=== PATIENT | female | born 2000 | race Caucasian/White ===

== ENCOUNTER 2022-12-04 12:02 | Outpatient (CLI) | payer OTHER ==
[2022-12-04 12:51] LABS: Appearance,Urine Clear (Clear); Bilirubin,Urine Negative (Negative); Blood,Urine Negative (Negative); Color,Urine Light Yellow; Glucose,Urine (UA) Negative (Negative); Ketones,Urine Negative (Negative); Leukocyte Esterase,Urine Negative (Negative); Nitrite,Urine Negative (Negative); PH, Urine 7.5 (5.0-8.0); Protein,Urine Negative (Negative); Specific Gravity,Urine 1.005 (1.001-1.035); Urobilinogen,Urine <2.0 mg/dL (<2.0)
[2022-12-04 15:06] VITALS: BP 120/74; PULSE 96; RESP 16; TEMP 98.1
--- NOTE | 2022-12-04 16:53 | P.MSEPDOC ---
Presenting Problems - Arrival Data Date of Arrival on Unit: 12/04/22 Time of Arrival on Unit: 12:11 Mode of Transport: Wheelchair - Complaint OB-Reason for Admission/Chief Complaint: Pain Medical History - Information : 2 Para: 0 Term: 0 : 0 Abortions: Spontaneous or Elective: 1 Number of Living Children: 0 - Gestational Age Gestational Age by SIERRA (wks/days): 20 Weeks and 2 Days Review of Systems - Review of Systems Constitutional: No problems Breast: No problems ENT: No problems Cardiovascular: No problems Respiratory: No problems Gastrointestinal: No problems Genitourinary: No problems Musculoskeletal: No problems Neurological: No problems Skin: No problems Vital Signs - Temperature Temperature: 98.1 F Temperature Source: Temporal Artery Scan - Pulse Right Brachial Pulse Rate: 96 Pulse Assessment Method: Automatic Cuff - Respirations Respiratory Rate: 16 Oxygen Delivery Method: Room Air - Blood Pressure Right Arm Blood Pressure: 120/74 Blood Pressure Mean: 89 Blood Pressure Source: Automatic Cuff Medical Screen Scoring - Cervical Exam Dilation (cm): 0 Effacement (%): 50 Station: -3 Membranes: Intact - Assessment - Baby A Baseline FHR: 145 Physician Notification - Physician Notified Physician Notified Date: 12/04/22 Physician Notified Time: 13:02 Physician: Roger Mcnamara New Order Received: Yes - Notification Comment Comment: d/c home Maternal Triage Index - Maternal Triage Index Presenting for scheduled procedure w/no complaint: No - Stat/Priority 1 Stat Priority 1: No - Urgent/Priority 2 Urgent Priority 2: Yes Provider Notified: Roger Mcnamara Provider Notified Time: 12:30 Criteria Met for Priority 2: 20wk r/o contractions - Prompt/Priority 3 Prompt Priority 3: No - Non-Urgent/Priority 4 Non-Urgent Priority 4: No Disposition - Disposition OB Disposition: Discharge to home Discharge Date: 12/04/22 Discharge Time: 13:07 I agree with the RN Medical Screening Exam: Yes Case reviewed; plan agreed upon as documented in EMR&OBIX.: Yes Diagnosis: RELATED CONDITIONS, UNSPECIFIED, SECOND TRIMESTER
== END 2022-12-04 13:07 | disposition home or self-care (01) ==
LOC: FBPOP 12:02
PROVIDERS: ATTEND Obstetrics & Gynecology
DX: O26.892 Other specified pregnancy related conditions, second trimester (principal); Z3A.20 20 weeks gestation of pregnancy; R10.32 Left lower quadrant pain; Z91.013 Allergy to seafood; F17.200 Nicotine dependence, unspecified, uncomplicated
CPT/HCPCS: 81003; G0463; 99213

== ENCOUNTER 2023-01-15 12:35 | Outpatient (CLI) | payer OTHER ==
[2023-01-15 13:14] VITALS: BP 108/66; PULSE 91; RESP 16; TEMP 98.8
[2023-01-15 13:28] LABS: Appearance,Urine Clear (Clear); Bilirubin,Urine Negative (Negative); Blood,Urine Negative (Negative); Color,Urine Light Yellow; Glucose,Urine (UA) Negative (Negative); Ketones,Urine Negative (Negative); Leukocyte Esterase,Urine Negative (Negative); Nitrite,Urine Negative (Negative); Protein,Urine Negative (Negative); Specific Gravity,Urine 1.005 (1.001-1.035); Urobilinogen,Urine <2.0 mg/dL (<2.0)
--- NOTE | 2023-01-15 19:19 | P.MSEPDOC ---
Presenting Problems - Arrival Data Date of Arrival on Unit: 01/15/23 Time of Arrival on Unit: 12:35 Mode of Transport: Wheelchair - Complaint OB-Reason for Admission/Chief Complaint: Possible Onset of Labor Comment: contractions x2 days worsening Medical History - Information : 2 Para: 0 Term: 0 : 0 Abortions: Spontaneous or Elective: 0 Number of Living Children: 0 - Gestational Age Gestational Age by SIERRA (wks/days): 26 Weeks and 2 Days Review of Systems - Review of Systems Constitutional: No problems Breast: No problems ENT: No problems Cardiovascular: No problems Respiratory: No problems Gastrointestinal: No problems Genitourinary: No problems Musculoskeletal: No problems Neurological: No problems Skin: No problems Vital Signs - Temperature Temperature: 98.8 F Temperature Source: Temporal Artery Scan - Pulse Right Sitting Pulse Rate: 91 Pulse Assessment Method: Automatic Cuff - Respirations Respiratory Rate: 16 Oxygen Delivery Method: Room Air O2 Sat by Pulse Oximetry: 98 - Blood Pressure Right Arm Sitting Blood Pressure: 108/66 Blood Pressure Mean: 80 Blood Pressure Source: Automatic Cuff Medical Screen Scoring - Cervical Exam Dilation (cm): 0 Effacement (%): 0 Station: -3 Membranes: Intact - Uterine Contractions Frequency From (mins): 1 Frequency To (mins): 3 Duration From (seconds): 30 Duration To (seconds): 80 Intensity: Mild Resting: Soft to palpation - Assessment - Baby A Baseline FHR: 135 Heart Rate - NICHD Category: Category I (Normal) Physician Notification - Physician Notified Physician Notified Date: 01/15/23 Physician Notified Time: 13:45 Physician: Roger Mcanmara New Order Received: Yes (discharge with instruction) - Notification Comment Comment: ua negative, cervix closed, instructed to get preg support belt Maternal Triage Index - Stat/Priority 1 Stat Priority 1: No - Urgent/Priority 2 Urgent Priority 2: Yes Provider Notified: Roger Mcnamara Provider Notified Time: 13:13 Criteria Met for Priority 2: 26.2 weeks, contractions Disposition - Disposition OB Disposition: Triage, Discharge to home, Written follow up instructions reviewed Discharge Date: 01/15/23 Discharge Time: 13:50 I agree with the RN Medical Screening Exam: Yes Case reviewed; plan agreed upon as documented in EMR&OBIX.: Yes Diagnosis: RELATED CONDITIONS, UNSPECIFIED, SECOND TRIMESTER
== END 2023-01-15 13:50 | disposition home or self-care (01) ==
LOC: FBPOP 12:35
PROVIDERS: ATTEND Obstetrics & Gynecology
DX: O26.92 Pregnancy related conditions, unspecified, second trimester (principal); O99.332 Smoking (tobacco) complicating pregnancy, second trimester; F17.200 Nicotine dependence, unspecified, uncomplicated; Z3A.26 26 weeks gestation of pregnancy; Z91.013 Allergy to seafood
CPT/HCPCS: 81003; G0463; 99213

== ENCOUNTER 2023-02-10 11:12 | Outpatient (CLI) | payer OTHER ==
[2023-02-10 12:23] VITALS: BP 110/68; PULSE 109; RESP 18; TEMP 98.4
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
== END 2023-02-10 12:00 | disposition home or self-care (01) ==
LOC: FBPOP 11:12
PROVIDERS: ATTEND Obstetrics & Gynecology
DX: O26.893 Other specified pregnancy related conditions, third trimester (principal); O99.333 Smoking (tobacco) complicating pregnancy, third trimester; F17.200 Nicotine dependence, unspecified, uncomplicated; Z3A.30 30 weeks gestation of pregnancy; T14.90XA Injury, unspecified, initial encounter; V87.8XXA Person injured in other specified noncollision transport accidents involving motor vehicle (traffic), initial encounter; Z91.013 Allergy to seafood
CPT/HCPCS: 59025; G0463; 99213

== ENCOUNTER 2023-04-15 15:59 | Inpatient (IN) | payer OTHER ==
--- NOTE | 2023-04-15 06:40 | P.HPOB ---
History of Present Illness H&P Date: 04/15/23 Chief Complaint: Requested induction of labor This patient is a pleasant 22-year-old 2 para 0 female estimated date of confinement 04/21/2023 estimated gestational age 39 and one sevenths weeks who presents to labor and delivery for requested induction of labor. Patient's cervix is unfavorable and therefore request two-stage induction due to maternal discomfort. care has been uncomplicated with the exception of anxiety. Review of Systems Genitourinary: Reports Menstruation: Reports amenorrhea Past Medical History Past Medical History: No Reported History Additional Past Medical History / Comment(s): PCOS History of Any Multi-Drug Resistant Organisms: None Reported Past Surgical History: Cholecystectomy Past Anesthesia/Blood Transfusion Reactions: No Reported Reaction Past Psychological History: Anxiety Smoking Status: Never smoker Past Alcohol Use History: None Reported Past Drug Use History: None Reported Medications and Allergies Home Medications Medication Instructions Recorded Confirmed Type Bep-Levr-Vwycx Acid 1 cap PO DAILY 08/27/22 03/10/23 History [-U Capsule (formulary)] Lurasidone [Latuda] 20 mg PO DAILY 01/14/23 03/10/23 History Allergies Allergy/AdvReac Type Severity Reaction Status Date / Time shellfish derived [Shellfish] Allergy Rash/Hives Verified 03/10/23 18:18 Exam - OBG Physical Exam Abdomen: bowel sounds normal, no diffuse tenderness, no bruit present, no guarding noted, no hepatomegaly, no splenomegaly, no mass Vulva: both: normal Vagina: normal moisture, no discharge Cervix: no lesion (Cervix in the office was closed and thick), no discharge Uterus: enlarged (Fundal height is 38 cm) Results blood work shows she is A-, rubella immune, RPR is nonreactive, hepatitis B and C were negative, HIV is nonreactive, Glucola was 137 with a normal three-hour gtt., group B strep was negative, most recent ultrasound showed estimated weight to be 5 lbs. 11 oz. at 35 weeks. Patient received RhoGAM on January 22. Assessment and Plan Assessment: This is a pleasant 22-year-old 2 para 0 female 39 and one sevenths weeks gestation who presents to labor and delivery for requested induction of labor. Due to the unfavorable cervix, patient is going to receive Cervidil placement at this time. Plan is induction of labor and anticipate vaginal delivery. (1) 39 weeks gestation of Status: Acute Code(s): Z3A.39 - 39 WEEKS GESTATION OF SNOMED Code(s): 40607874 (2) Elective induction of labor planned Status: Acute Code(s): KME2655 - SNOMED Code(s): 606028961 (3) Rh negative state in antepartum period Status: Acute Code(s): O26.899 - OTH RELATED CONDITIONS, UNSPECIFIED TRIMESTER; Z67.91 - UNSPECIFIED BLOOD TYPE, RH NEGATIVE SNOMED Code(s): 940383009
[2023-04-15] MEDS ORDERED: NALBUPHINE 10 MG/ML (10 ML MDV) IV PRN (16:14)
[2023-04-15] MEDS ORDERED: DINOPROSTONE 10 MG INSERT.ER VAGINAL ONE (16:14)
[2023-04-16] MEDS ORDERED: OXYTOCIN 10 UNIT/ML 1 ML VIAL IM PRN ×2 (06:25→11:03)
[2023-04-16] MEDS ORDERED: LIDOCAINE 0.5% (PF) 5 MG/ML (50 ML SDV) SQ PRN (06:25)
[2023-04-16] MEDS ORDERED: miSOPROStoL 200 MCG TAB PO PRN ×2 (06:25→11:03)
[2023-04-16] MEDS ORDERED: CARBOPROST TROMETHAMINE 250 MCG/ML 1 ML AMP IM PRN ×2 (06:25→11:03)
[2023-04-16] MEDS ORDERED: TRANEXAMIC 1,000 MG/100ML-NACL 1,000 MG in EMPTY BAG 1 BAG IV PRN ×2 (06:25→11:03)
[2023-04-16] MEDS ORDERED: METHYLERGONOVINE 0.2 MG/ML 1 ML AMP IM PRN ×2 (06:25→11:03)
[2023-04-16] MEDS ORDERED: TERBUTALINE 1 MG/ML VIAL SQ PRN (06:25)
[2023-04-16] MEDS ORDERED: OXYTOCIN 30 UNITS/500 ML NS 30 UNIT in SALINE 1 500ML.BAG IV SCH ×2 (06:30→12:45)
[2023-04-16] MEDS ORDERED: LACTATED RINGERS 1,000 ML IV SCH (06:30)
--- NOTE | 2023-04-16 06:40 | P.PN ---
Progress Note - Text Progress Note Date: 04/16/23 Patient has Cervidil placed last evening. Cervix this morning is closed and thick. She's having occasional contractions. heart tones are category 1. I previously discussed options with the patient the office if the Cervidil is ineffective including coming back in trying another day, attempting induction with Pitocin, or delivery by section. After discussion with the patient and her partner requesting to try Pitocin this morning 's ineffective or has no significant change and we'll proceed with section today. I did discuss the surgery and risks with the patient. Plan is to attempt induction with Pitocin otherwise proceed with primary section s econdary to failed induction.
[2023-04-16 07:03] LABS: Basophils % (A) 0 %; Eosinophils # (A) 0.1 k/uL (0-0.7); Eosinophils % (A) 1 %; HGB 12.8 gm/dL (11.4-16.0); Lymphocytes # (A) 2.7 k/uL (1.0-4.8); Lymphocytes % (A) 35 %; MCH 31.7 pg (25.0-35.0); MCHC 33.8 g/dL (31.0-37.0); MCV 93.7 fL (80.0-100.0); Mean Platelet Volume 8.7; Monocytes # (A) 0.5 k/uL (0-1.0); Monocytes % (A) 6 %; Neutrophils # (A) 4.3 k/uL (1.3-7.7); Neutrophils % (A) 55 %; Platelet Count 275 k/uL (150-450); RBC 4.05 m/uL (3.80-5.40); RDW 13.6 % (11.5-15.5); WBC 7.8 k/uL (3.8-10.6)
[2023-04-16] MEDS ORDERED: CITRIC ACID-SODIUM CITRATE 15 ML CUP PO ONE (11:03)
[2023-04-16] MEDS ORDERED: NALBUPHINE 10 MG/ML (10 ML MDV) ONE (12:00)
[2023-04-16] MEDS ORDERED: KETOROLAC 15 MG/ML 1 ML VIAL ONE (12:00)
[2023-04-16] MEDS ORDERED: OXYTOCIN 30 UNITS/500 ML NS BAG IV ONE (12:00)
[2023-04-16] MEDS ORDERED: ONDANSETRON 4 MG/2 ML VIAL ONE (12:00)
[2023-04-16] MEDS ORDERED: ePHEDrine 50 MG/ML 1 ML VIAL ONE (12:00)
[2023-04-16] MEDS ORDERED: MORPHINE SULFATE (PF) 0.3 MG/0.3 ML SYR ONE (12:00)
[2023-04-16] MEDS ORDERED: ONDANSETRON 4 MG/2 ML VIAL IVP PRN (12:30)
[2023-04-16] MEDS ORDERED: NALOXONE 0.4 MG/ML 1 ML VIAL IV PRN (12:30)
[2023-04-16] MEDS ORDERED: KETOROLAC 15 MG/ML 1 ML VIAL IVP PRN (12:30)
[2023-04-16] MEDS ORDERED: diphenhydrAMINE 50 MG/ML 1 ML VIAL IVP PRN ×2 (12:30→12:43)
[2023-04-16] MEDS ORDERED: HYDROmorphone 0.5 MG/0.5 ML SYRINGE IVP PRN (12:30)
[2023-04-16] MEDS ORDERED: ZOLPIDEM 5 MG TAB PO PRN (12:43)
[2023-04-16] MEDS ORDERED: diphenhydrAMINE 25 MG CAP PO PRN (12:43)
[2023-04-16] MEDS ORDERED: METOCLOPRAMIDE 5 MG/ML 2 ML VIAL IVP PRN (12:43)
[2023-04-16] MEDS ORDERED: SIMETHICONE 80 MG CHEWABLE PO PRN (12:43)
[2023-04-16] MEDS ORDERED: LANOLIN CREAM 5 GM TUBE TOPICAL PRN (12:43)
--- NOTE | 2023-04-16 12:52 | P.OP ---
Date of Procedure: 04/16/23 Preoperative Diagnosis: #1: 39-2/7 week intrauterine . #2: Failed induction requests Postoperative Diagnosis: #1; same. #2: Brow presentation Procedure(s) Performed: Primary low transverse section Anesthesia: spinal Surgeon: Roger Mcnamara Water Pump Servicer #1: Stella Yañez Estimated Blood Loss (ml): 600 Pathology: none sent Condition: stable Disposition: floor Indications for Procedure: Please see dictated H&P for intimate details of this patient's admission. In brief summary is a pleasant 22-year-old 2 para 0 female 39-2/7 weeks gestation admitted to labor and delivery for two-stage induction of labor for requested delivery. Patient has a Cervidil placed and unfortunately she has no dilation or change in her cervix. I did offer the patient to go home her come back again to try the Cervidil again she elected to try Pitocin if unsuccessful wish to proceed with section for delivery. She made no change with Pitocin and therefore proceed with section at this time. Patient does understand the surgery and risks including risks of infection, bleeding, possible injury to bowel, bladder, vessels and/or other organs. All the patient's questions are answered and a written consent is obtained. Operative Findings: This is a vigorous viable female infant Apgars 8 and 9 delivery time is 1216 hrs. Patient normal appearing uterus, tubes, ovaries. was a brow presentation Description of Procedure: This patient is taken to the operating room where she is sat up and spinal anesthetic is administered without incident. A Schmitz catheter had already been placed to straight drain. With an adequate level of anesthesia she has abdominal prep and drape. The appropriate timeout was done. At this time scalpels and taken a Pfannenstiel skin incision is then made. A second scalpel is taken down the fascia the fascia scored with a knife. Fascial incision extended bilaterally using the Kaye scissors. Fascia is then dissected off the rectus muscles sharply. Rectus muscles are the peritoneum identified and entered sharply. Peritoneal incision extended superior and inferior without difficulty. Bladder blade is then placed. Bladder peritoneum was then sharply taken off the lower uterine segment. Scalpels and taken low transverse uterine incision is made. Using a hemostat I enter the uterine cavity bluntly and there is loss of small amount of clear fluid. Incision is extended bluntly. This point the 's head is attempted then guided through the incision but it is asynclitic and found to be in brow presentation. The infant's head is then repositioned and then easily delivered with fundal pressure. Mouth and nares are bulb suctioned. Is no evidence of a nuchal cord. With more fundal pressure delivery the rest this 's body. Is a vigorous viable female infant Apgars are 8 and 9 delivery time was 1216 hrs. After delivery of the the umbilical cord is doubly clamped and cut is handed off to the nurses in attendance. The placenta is then manually extracted intact. Uterus is then externalized and uterine incision demarcated with Cooper clamps. Uterine incision is then closed using 0 Vicryl running locked fashion 2 layers. Stasis is noted. The bladder peritoneum was then reapproximated using a 3-0 Vicryl. Excess fluid is removed from the abdomen and pelvis. The uterus, tubes, ovaries appear normal for term gestation. Uterus placed back into the abdomen. The parietal peritoneum was then identified and closed using 0 Vicryl running fashion. Rectus muscles reapproximated Vicryl interrupted fashion. Fascial incision is then closed using 0 PDS in a running fashion. Fascial incision is intact and hemostatic. Subcutaneous tissues and closed using a 3-0 Vicryl. Skin is and closed using saumya. All counts are correct 3. There are no complications. Infant and mother are taken to the birthing suite in satisfactory condition.
[2023-04-16] MEDS: ACETAMINOPHEN TAB 500 MG TAB PO SCH ×2 (14:57→22:18)
[2023-04-16] MEDS: LACTATED RINGERS 1,000 ML IV SCH ×2 (15:15→17:57)
[2023-04-16] MEDS: KETOROLAC 15 MG/ML 1 ML VIAL IVP SCH (17:54)
[2023-04-16] MEDS: IBUPROFEN 600 MG TAB PO SCH (19:42)
[2023-04-16] MEDS: SENNOSIDES-DOCUSATE SODIUM 1 EACH TAB PO SCH (21:46)
[2023-04-16] MEDS ORDERED: Rhogam IMMUNE GLOBULIN 1,500 UNIT/1 ML IM ONE (21:46)
[2023-04-17] MEDS: ACETAMINOPHEN TAB 500 MG TAB PO SCH ×4 (06:20→22:09)
[2023-04-17] MEDS: LACTATED RINGERS 1,000 ML IV SCH (06:21)
[2023-04-17] MEDS: IBUPROFEN 600 MG TAB PO SCH ×4 (06:21→18:48)
[2023-04-17 06:38] LABS: Basophils % (A) 0 %; Eosinophils # (A) 0.1 k/uL (0-0.7); Eosinophils % (A) 1 %; HCT 33.9 % (34.0-46.0); HGB 11.5 gm/dL (11.4-16.0); Lymphocytes # (A) 2.4 k/uL (1.0-4.8); Lymphocytes % (A) 29 %; MCH 32.2 pg (25.0-35.0); MCHC 34.1 g/dL (31.0-37.0); MCV 94.4 fL (80.0-100.0); Mean Platelet Volume 8.6; Monocytes # (A) 0.5 k/uL (0-1.0); Monocytes % (A) 6 %; Neutrophils # (A) 5.3 k/uL (1.3-7.7); Neutrophils % (A) 63 %; Platelet Count 206 k/uL (150-450); RBC 3.59 m/uL (3.80-5.40); RDW 13.8 % (11.5-15.5); WBC 8.4 k/uL (3.8-10.6)
--- NOTE | 2023-04-17 06:40 | P.PNOBGPC ---
Subjective - Subjective Patient reports: Reports appetite normal, Reports voiding normally, Reports pain well controlled, Reports ambulating normally : doing well Objective - Vital Signs Latest vital signs: Vital Signs Temp Pulse Resp BP Pulse Ox 04/17/23 04:00 68 16 110/69 04/17/23 00:00 98.1 F 89 16 110/69 04/16/23 21:00 16 04/16/23 20:00 98.8 F 96 16 112/73 97 04/16/23 19:00 16 04/16/23 17:00 18 04/16/23 15:54 16 04/16/23 15:51 98.0 F 98 16 121/68 99 04/16/23 15:30 16 04/16/23 14:45 98.0 F 109 H 16 122/70 100 04/16/23 14:15 97 16 124/66 100 04/16/23 13:45 99 16 124/78 99 04/16/23 13:30 91 16 123/66 98 04/16/23 13:15 81 16 121/66 04/16/23 13:00 74 16 122/60 04/16/23 12:45 96.4 F L 74 16 112/55 Intake and Output 04/16/23 04/16/23 04/17/23 14:59 22:59 06:59 Intake Total 600 Output Total 850 100 900 Balance -250 -100 -900 Intake: IV 600 Output: Urine 250 100 900 Straight 900 Output, Quantitative 600 Blood Loss Other: Voiding Method Indwelling Catheter Indwelling Catheter - Exam Lungs: bilateral: normal Chest: Normal S1, Normal S2 Extremities: Present: normal Abdomen: Present: normal appearance, soft. Absent: distention, tenderness Incision: Present: normal, dry, intact Uterus: Present: normal, firm Assessment and Plan Assessment: Postoperative day #1. Patient is resting without new complaints. Vital signs are stable and she is afebrile. Uterus is firm nontender she's having normal lochia. She did need to have a straight cath due to some urinary retention. CBC is pending. Plan today is to advance her diet, encourage ambulation, check a CBC, and continue routine postoperative care (1) 39 weeks gestation of Current Visit: No Status: Acute Code(s): Z3A.39 - 39 WEEKS GESTATION OF SNOMED Code(s): 97575459 (2) Elective induction of labor planned Current Visit: No Status: Acute Code(s): QGE4055 - SNOMED Code(s): 854872085 (3) Rh negative state in antepartum period Current Visit: No Status: Acute Code(s): O26.899 - OTH RELATED CONDITIONS, UNSPECIFIED TRIMESTER; Z67.91 - UNSPECIFIED BLOOD TYPE, RH NEGATIVE SNOMED Code(s): 762021397
[2023-04-17] MEDS: KETOROLAC 15 MG/ML 1 ML VIAL IVP SCH (06:47)
[2023-04-17] MEDS: SENNOSIDES-DOCUSATE SODIUM 1 EACH TAB PO SCH ×2 (07:38→19:35)
[2023-04-18] MEDS: IBUPROFEN 600 MG TAB PO SCH ×3 (00:01→14:52)
[2023-04-18] MEDS: ACETAMINOPHEN TAB 500 MG TAB PO SCH ×2 (03:52→08:52)
--- NOTE | 2023-04-18 06:32 | P.PNOBGPC ---
Subjective - Subjective Patient reports: Reports appetite normal, Reports voiding normally, Reports pain well controlled, Reports ambulating normally : doing well Objective - Vital Signs Latest vital signs: Vital Signs Temp Pulse Resp BP Pulse Ox 04/18/23 00:00 98 F 74 18 116/74 97 04/17/23 19:00 18 04/17/23 17:00 16 04/17/23 15:22 98.7 F 86 17 108/71 98 04/17/23 15:00 18 04/17/23 13:00 16 04/17/23 12:00 98.3 F 91 16 124/76 99 04/17/23 10:36 16 04/17/23 09:00 16 04/17/23 08:00 98.6 F 79 17 104/69 98 04/17/23 07:00 16 Intake and Output 04/17/23 04/17/23 04/18/23 14:59 22:59 06:59 Intake Total 540 Output Total 750 Balance -750 540 Intake: Oral 540 Output: Urine 750 Other: Voiding Method Toilet # Voids 1 1 - Exam Lungs: bilateral: normal Chest: Normal S1, Normal S2 Extremities: Present: normal Abdomen: Present: normal appearance, soft. Absent: distention, tenderness Incision: Present: normal, dry, intact Uterus: Present: normal, firm - Labs Labs: Abnormal Lab Results - Last 24 Hours (Table) 04/17/23 Range/Units 06:10 RBC 3.59 L (3.80-5.40) m/uL Hct 33.9 L (34.0-46.0) % Assessment and Plan Assessment: Postoperative day #2. Patient is resting without complaints wishes to go vital signs are stable she is afebrile. Uterus is firm nontender she is having normal lochia. Her incision is intact and dry. CBC yesterday was normal. Plan today is to continue routine care discharge home later tonight. (1) 39 weeks gestation of Current Visit: No Status: Acute Code(s): Z3A.39 - 39 WEEKS GESTATION OF SNOMED Code(s): 83436080 (2) Elective induction of labor planned Current Visit: No Status: Acute Code(s): PYM2717 - SNOMED Code(s): 882469492 (3) Rh negative state in antepartum period Current Visit: No Status: Acute Code(s): O26.899 - OTH RELATED CONDITIONS, UNSPECIFIED TRIMESTER; Z67.91 - UNSPECIFIED BLOOD TYPE, RH NEGATIVE SNOMED Code(s): 610249109
--- NOTE | 2023-04-18 06:44 | P.DS ---
Providers Date of admission: 04/15/23 15:59 Expected date of discharge: 04/18/23 Attending physician: Roger Mcnamara Primary care physician: Stated None - Discharge Diagnosis(es) (1) 39 weeks gestation of Current Visit: No Status: Acute (2) Elective induction of labor planned Current Visit: No Status: Acute (3) Rh negative state in antepartum period Current Visit: No Status: Acute Hospital Course: Please see dictated H&P for intimate details of this patient's admission. In brief summary this pleasant 22-year-old 2 para 0 female 39-2/7 weeks gestation mid to labor and delivery for two-stage induction of labor. Patient underwent a primary low transverse section secondary to failed induction and was found to have a brow presentation at the time of delivery. day #2 patient continues to well was felt to be stable for discharge home follow up with me in 1 week. Procedures: Two-stage induction of labor, primary low transverse section Patient Condition at Discharge: Good Plan - Discharge Summary New Discharge Prescriptions: New Ibuprofen [Motrin] 600 mg PO Q6H #40 tab oxyCODONE HCL [OxyIR] 5 mg PO Q4HR PRN #18 tab PRN Reason: Pain Scale 4 - 6 No Action Ryf-Kcie-Kvwux Acid [-U Capsule (formulary)] 1 cap PO DAILY Lurasidone [Latuda] 40 mg PO DAILY Discharge Medication List Joq-Ijxp-Lykfp Acid [-U Capsule (formulary)] 1 cap PO DAILY 08/27/22 [History] Lurasidone [Latuda] 40 mg PO DAILY 01/14/23 [History] Ibuprofen [Motrin] 600 mg PO Q6H #40 tab 04/18/23 [Rx] oxyCODONE HCL [OxyIR] 5 mg PO Q4HR PRN #18 tab 04/18/23 [Rx] Follow up Appointment(s)/Referral(s): Roger Mcnamara MD [STAFF PHYSICIAN] - 05/27/23 10:45 am (Post Op Appointment 04-22-2023 at 9:15) Patient Instructions/Handouts: (DC) Activity/Diet/Wound Care/Special Instructions: No heavy lifting or strenuous activity for 6 weeks. No intercourse or anything per vagina for 6 weeks. Please call if any fever, chills, excessive vaginal bleeding, and/or abdominal pain Discharge Disposition: HOME SELF-CARE
[2023-04-18] MEDS: SENNOSIDES-DOCUSATE SODIUM 1 EACH TAB PO SCH (08:52)
[2023-04-18 09:13] VITALS: BP 114/66; PULSE 75; RESP 14; TEMP 98.6
== END 2023-04-18 15:00 | disposition home or self-care (01) | DRG 540 ==
LOC: 4FBP 15:59
PROVIDERS: ADMIT Obstetrics & Gynecology; ATTEND Obstetrics & Gynecology
PROC: 3E0234Z Introduction of Serum, Toxoid and Vaccine into Muscle, Percutaneous Approach (ICD-10-PCS; principal; 2023-04-16 12:00)
PROC: 10D00Z1 Extraction of Products of Conception, Low, Open Approach (ICD-10-PCS; principal; 2023-04-16 12:00)
PROC: 3E033VJ Introduction of Other Hormone into Peripheral Vein, Percutaneous Approach (ICD-10-PCS; principal; 2023-04-16 12:00)
DX: O32.3XX0 Maternal care for face, brow and chin presentation, not applicable or unspecified (principal); F41.9 Anxiety disorder, unspecified; O26.893 Other specified pregnancy related conditions, third trimester; O99.344 Other mental disorders complicating childbirth; Z37.0 Single live birth; O61.0 Failed medical induction of labor; O99.284 Endocrine, nutritional and metabolic diseases complicating childbirth; Z3A.39 39 weeks gestation of pregnancy; Z67.91 Unspecified blood type, Rh negative; Z90.49 Acquired absence of other specified parts of digestive tract; E28.2 Polycystic ovarian syndrome; Z91.013 Allergy to seafood
CPT/HCPCS: 85025; 85461; 86850; 86900; 86901

== ENCOUNTER 2023-04-23 05:41 | Emergency (ER) | payer OTHER ==
[2023-04-23 06:07] VITALS: TEMP 98.6
--- NOTE | 2023-04-23 06:22 | ED ---
Extremity Problem HPI - General Chief complaint: Extremity Problem,Nontraumatic Stated complaint: Right Ankle Swelling Time Seen by Provider: 04/23/23 06:00 Source: patient, RN notes reviewed Mode of arrival: ambulatory Limitations: no limitations - History of Present Illness Initial comments: Patient is a 22-year-old female presenting to the ER with a chief complaint of right ankle swelling. Patient is 1 week status post . She states she noticed this morning her right ankle was swollen. Denies any injury/trauma or fevers. She reports mild discomfort as a pressure when walking. Patient denies any calf tenderness, shortness of breath, chest pain/palpitations, weakness or paresthesias. Patient states she is only taking pain medication as prescribed and a vitamin. - Related Data Home Medications Medication Instructions Recorded Confirmed Gqi-[id number] Acid 1 cap PO DAILY 08/27/22 04/15/23 [-U Capsule (formulary)] Lurasidone [Latuda] 40 mg PO DAILY 01/14/23 04/15/23 Previous Rx's Medication Instructions Recorded Ibuprofen [Motrin] 600 mg PO Q6H #40 tab 04/18/23 oxyCODONE HCL [OxyIR] 5 mg PO Q4HR PRN #18 tab 04/18/23 Cephalexin [Keflex] 500 mg PO Q12HR 7 Days #14 cap 04/23/23 Allergies Allergy/AdvReac Type Severity Reaction Status Date / Time shellfish derived [Shellfish] Allergy Rash/Hives Verified 04/23/23 05:56 Review of Systems ROS Statement: Those systems with pertinent positive or pertinent negative responses have been documented in the HPI. ROS Other: All systems not noted in ROS Statement are negative. Past Medical History Past Medical History: No Reported History, Neurologic Disorder Additional Past Medical History / Comment(s): PCOS, HX epilepsy, no seizures in over 1 year History of Any Multi-Drug Resistant Organisms: None Reported Past Surgical History: Section, Cholecystectomy Past Anesthesia/Blood Transfusion Reactions: No Reported Reaction Past Psychological History: Anxiety, Schizophrenia Smoking Status: Former smoker Past Alcohol Use History: None Reported Past Drug Use History: None Reported - Past Family History Mother Family Medical History: Thyroid Disorder General Exam Limitations: no limitations General appearance: alert, in no apparent distress Respiratory exam: Present: normal lung sounds bilaterally. Absent: respiratory distress, wheezes, rales, rhonchi, stridor Cardiovascular Exam: Present: regular rate, normal rhythm, normal heart sounds. Absent: systolic murmur, diastolic murmur, rubs, gallop, clicks Extremities exam: Present: other (Bilateral 2+ pedal pitting edema. Edema extends proximal into right ankle. 2+ dorsalis pedis pulses. No calf tenderness, erythema, or warmth. equal strength bilaterally.) Skin exam: Present: warm, dry, intact, normal color. Absent: rash Course Vital Signs 04/23/23 04/23/23 05:52 09:27 Temperature 98.6 F Pulse Rate 68 75 Respiratory 16 18 Rate Blood Pressure 131/82 135/90 O2 Sat by Pulse 99 99 Oximetry Medical Decision Making - Medical Decision Making Was pt. sent in by a medical professional or institution (, PA, FLEX O WRITER OPERATOR, urgent care, hospital, or alf...) When possible be specific @ -No Did you speak to anyone other than the patient for history (EMS, parent, family, police, friend...)? What history was obtained from this source @ -No Did you review nursing and triage notes (agree or disagree)? Why? @ -I reviewed and agree with nursing and triage notes Were old charts reviewed (outside hosp., previous admission, EMS record, old EKG, old radiological studies, urgent care reports/EKG's, alf records)? Report findings @ -No old charts were reviewed Differential Diagnosis (chest pain, altered mental status, abdominal pain women, abdominal pain men, vaginal bleeding, weakness, fever, dyspnea, syncope, headache, dizziness, GI bleed, back pain, seizure, CVA, palpatations, mental health, musculoskeletal)? @ -Gout, infection, sprain, dependent edema, pre-eclampsia, DVT; EKG interpreted by me (3pts min.). @ -None X-rays interpreted by me (1pt min.). @ -None done CT interpreted by me (1pt min.). @ -None done U/S interpreted by me (1pt. min.). @ -Bilateral lower extremity ultrasound negative for DVT. What testing was considered but not performed or refused? (CT, X-rays, U/S, labs)? Why? @ -None What meds were considered but not given or refused? Why? @ -None Did you discuss the management of the patient with other professionals (professionals i.e. , PA, FLEX O WRITER OPERATOR, lab, RT, psych nurse, hospice social worker, spring setter, teacher, contracting officer, family independence case manager)? Give summary @ -No Was smoking cessation discussed for >3mins.? @ -No Was critical care preformed (if so, how long)? @ -No Were there social determinants of health that impacted care today? How? (Homelessness, low income, unemployed, alcoholism, drug addiction, transportation, low edu. Level, literacy, decrease access to med. care, skilled nursing, rehab)? @ -No Was there de-escalation of care discussed even if they declined (Discuss DNR or withdrawal of care, Hospice)? DNR status @ -No What co-morbidities impacted this encounter? (DM, HTN, Smoking, COPD, CAD, Cancer, CVA, ARF, Chemo, Hep., AIDS, mental health diagnosis, sleep apnea, morbid obesity)? @ -None Was patient admitted / discharged? Hospital course, mention meds given and route, prescriptions, significant lab abnormalities, going to OR and other pertinent info. @ -Patient is a 22-year-old female one week status post presenting to the ER with a chief complaint of right ankle swelling. Exam was significant for bilateral pedal pitting edema and right ankle edema. Urinalysis was positiv e for leukocytes and was sent for culture. Bilateral lower extremity ultrasound negative for DVT. Patient will be discharged home with Keflex. Patient advised to wear stockings and to frequently ambulate. Patient to follow-up with PCP and MEDICAL BILLING SPECIALIST. Undiagnosed new problem with uncertain prognosis? @ -No Drug Therapy requiring intensive monitoring for toxicity (Heparin, Nitro, Insulin, Cardizem)? @ -No Were any procedures done? @ -No Diagnosis/symptom? @ -[UTI , dependent edema Acute, or Chronic, or Acute on Chronic? @ -Acute Uncomplicated (without systemic symptoms) or Complicated (systemic symptoms)? @ -Uncomplicated Side effects of treatment? @ -No Exacerbation, Progression, or Severe Exacerbation? @ -No Poses a threat to life or bodily function? How? (Chest pain, [place], [place], pneumonia, PE, COPD, DKA, ARF, appy, cholecystitis, CVA, Diverticulitis, Homicidal, Suici monserrat, threat to staff... and all critical care pts) @ -No - Lab Data Result diagrams: 04/23/23 06:21 04/23/23 06:21 Lab Results 04/23/23 04/23/23 04/23/23 Range/Units 06:14 06:21 06:21 WBC 6.0 (3.8-10.6) k/uL RBC 3.52 L (3.80-5.40) m/uL Hgb 11.5 (11.4-16.0) gm/dL Hct 32.6 L (34.0-46.0) % MCV 92.7 (80.0-100.0) fL MCH 32.6 (25.0-35.0) pg MCHC 35.2 (31.0-37.0) g/dL RDW 13.2 (11.5-15.5) % Plt Count 288 (150-450) k/uL MPV 7.7 Sodium 138 (137-145) mmol/L Potassium 3.9 (3.5-5.1) mmol/L Chloride 109 H (98-107) mmol/L Carbon Dioxide 21 L (22-30) mmol/L Anion Gap 8 mmol/L BUN 11 (7-17) mg/dL Creatinine 0.49 L (0.52-1.04) mg/dL Est GFR (CKD-EPI)AfAm >90 (>60 ml/min/1.73 sqM) Est GFR (CKD-EPI)NonAf >90 (>60 ml/min/1.73 sqM) Glucose 76 (74-99) mg/dL Calcium 9.3 (8.4-10.2) mg/dL Total Bilirubin 0.5 (0.2-1.3) mg/dL AST 25 (14-36) U/L ALT 23 (4-34) U/L Alkaline Phosphatase 107 (38-126) U/L Total Protein 6.2 L (6.3-8.2) g/dL Albumin 3.5 (3.5-5.0) g/dL Urine Color Light Yellow Urine Appearance Slightly Cloudy H (Clear) Urine pH 6.5 (5.0-8.0) Ur Specific Ambia <1.005 (1.001-1.035) Urine Protein Negative (Negative) Urine Glucose (UA) Negative (Negative) Urine Ketones Negative (Negative) Urine Blood Small (Negative) Urine Nitrite Negative (Negative) Urine Bilirubin Negative (Negative) Urine Urobilinogen <2.0 (<2.0) mg/dL Ur Leukocyte Esterase Large (Negative) Urine RBC 14 H (0-5) /hpf Urine WBC 71 H (0-5) /hpf Ur Squamous Epith Cells 10 H (0-4) /hpf Urine Bacteria Occasional H (None) /hpf - Radiology Data Radiology results: report reviewed, image reviewed Disposition Clinical Impression: UTI (urinary tract infection), Dependent edema Disposition: HOME SELF-CARE Condition: Stable Instructions (If sedation given, give patient instructions): Urinary Tract Infection in Women (ED), Leg Edema (ED) Additional Instructions: Please return to the Emergency Department if symptoms worsen or any other concerns. Patient advised to complete full course of antibiotics. Patient advis ed to wear compression stockings and frequently ambulate. Prescriptions: Cephalexin [Keflex] 500 mg PO Q12HR 7 Days #14 cap Is patient prescribed a controlled substance at d/c from ED?: No Referrals: Nacho Doherty DO [Primary Care Provider] - 1-2 days Time of Disposition: 09:51
[2023-04-23 06:44] LABS: HCT 32.6 % (34.0-46.0); HGB 11.5 gm/dL (11.4-16.0); MCH 32.6 pg (25.0-35.0); MCHC 35.2 g/dL (31.0-37.0); MCV 92.7 fL (80.0-100.0); Mean Platelet Volume 7.7; Platelet Count 288 k/uL (150-450); RBC 3.52 m/uL (3.80-5.40); RDW 13.2 % (11.5-15.5)
[2023-04-23 06:57] LABS: ALT 23 U/L (4-34); AST 25 U/L (14-36); African American GFR (CKD) >90 (>60 ml/min/1.73 sqM); Albumin 3.5 g/dL (3.5-5.0); Alkaline Phosphatase 107 U/L (38-126); Anion Gap 8 mmol/L; Blood Urea Nitrogen 11 mg/dL (7-17); Calcium 9.3 mg/dL (8.4-10.2); Carbon Dioxide 21 mmol/L (22-30); Chloride 109 mmol/L (98-107); Glucose 76 mg/dL (74-99); Non-African American GFR(CKD) >90 (>60 ml/min/1.73 sqM); Potassium 3.9 mmol/L (3.5-5.1); Sodium 138 mmol/L (137-145); Total Bilirubin 0.5 mg/dL (0.2-1.3); Total Protein 6.2 g/dL (6.3-8.2)
[2023-04-23 07:15] LABS: Bacteria,Urine Occasional /hpf; Color,Urine Light Yellow; RBC,Urine 14 /hpf (0-5); Squamous Epithelial Cell,Urine 10 /hpf (0-4); WBC,Urine 71 /hpf (0-5)
[2023-04-23 07:16] LABS: Appearance,Urine Slightly Cloudy (Clear); Bilirubin,Urine Negative (Negative); Blood,Urine Small (Negative); Glucose,Urine (UA) Negative (Negative); Ketones,Urine Negative (Negative); PH, Urine 6.5 (5.0-8.0); Protein,Urine Negative (Negative); Specific Gravity,Urine <1.005 (1.001-1.035)
[2023-04-23 07:17] LABS: Leukocyte Esterase,Urine Large (Negative); Nitrite,Urine Negative (Negative); Urobilinogen,Urine <2.0 mg/dL (<2.0)
--- NOTE | 2023-04-23 09:30 | US ---
EXAMINATION TYPE: US venous doppler duplex LE DATE OF EXAM: 04/23/2023 7:46 AM COMPARISON: NONE CLINICAL INDICATION: Female, 22 years old with history of bilateral ankle swelling and pain [address] ; SIDE PERFORMED: Bilateral TECHNIQUE: The lower extremity deep venous system is examined utilizing real time linear array sonog dagmar with graded compression, doppler sonography and color-flow sonography. VESSELS IMAGED: Common Femoral Vein Deep Femoral Vein Greater Saphenous Vein * Femoral Vein Popliteal Vein Small Saphenous Vein * Proximal Calf Veins (* superficial vessels) Right Leg: Negative for DVT Left Leg: Negative for DVT IMPRESSION: 1. Bilateral lower extremity ultrasound negative for deep venous thrombosis.
[2023-04-23 09:42] VITALS: BP 135/90; PULSE 75; RESP 18
== END 2023-04-23 10:15 | disposition home or self-care (01) ==
LOC: EC 05:41
DX: N39.0 Urinary tract infection, site not specified (principal); R60.9 Edema, unspecified; Z87.891 Personal history of nicotine dependence; Z90.49 Acquired absence of other specified parts of digestive tract; Z86.59 Personal history of other mental and behavioral disorders; Z91.013 Allergy to seafood
CPT/HCPCS: 36415; 80053; 81001; 85027; 87086; 93970; 99284

== ENCOUNTER 2023-06-07 14:58 | Emergency (ER) | payer OTHER ==
[2023-06-07 15:24] VITALS: TEMP 98.7
[2023-06-07] MEDS ORDERED: MORPHINE SULFATE 4 MG/ML SYRINGE IVP STA ×2 (15:29→17:24)
[2023-06-07] MEDS ORDERED: SODIUM CHLORIDE 0.9% 1,000 ML IV STA (15:29)
[2023-06-07] MEDS ORDERED: ONDANSETRON 4 MG/2 ML VIAL IVP STA (15:29)
[2023-06-07] MEDS ORDERED: diphenhydrAMINE 50 MG/ML 1 ML VIAL IVP STA (15:35)
[2023-06-07] MEDS ORDERED: methylPREDNISolone SOD SUCCI 125 MG/2 ML VIAL IV STA (15:35)
[2023-06-07] MEDS ORDERED: FAMOTIDINE 20 MG/2 ML VIAL IV STA (15:35)
[2023-06-07 15:58] LABS: Basophils % (A) 0 %; Eosinophils # (A) 0.1 k/uL (0-0.7); Eosinophils % (A) 1 %; HCT 38.3 % (34.0-46.0); HGB 13.1 gm/dL (11.4-16.0); Lymphocytes # (A) 2.3 k/uL (1.0-4.8); Lymphocytes % (A) 29 %; MCHC 34.1 g/dL (31.0-37.0); Monocytes # (A) 0.5 k/uL (0-1.0); Monocytes % (A) 6 %; Neutrophils % (A) 63 %; Platelet Count 279 k/uL (150-450); RBC 4.21 m/uL (3.80-5.40); RDW 12.7 % (11.5-15.5)
[2023-06-07 16:09] LABS: INR 0.9 (<1.2); Partial Thromboplastin Time 24.2 sec (22.0-30.0); Prothrombin Time 9.9 sec (10.0-12.5)
[2023-06-07 16:42] LABS: ALT 104 U/L (4-34); African American GFR (CKD) >90 (>60 ml/min/1.73 sqM); Albumin 4.2 g/dL (3.5-5.0); Alkaline Phosphatase 94 U/L (38-126); Amylase 78 U/L (30-110); Anion Gap 14 mmol/L; Calcium 9.7 mg/dL (8.4-10.2); Carbon Dioxide 19 mmol/L (22-30); Chloride 107 mmol/L (98-107); Lipase 308 U/L (23-300); Non-African American GFR(CKD) >90 (>60 ml/min/1.73 sqM); Potassium 3.7 mmol/L (3.5-5.1); Sodium 140 mmol/L (137-145); Total Protein 6.9 g/dL (6.3-8.2)
[2023-06-07 16:44] LABS: AST 64 U/L (14-36); Blood Urea Nitrogen 11 mg/dL (7-17); Total Bilirubin 0.4 mg/dL (0.2-1.3)
--- NOTE | 2023-06-07 16:50 | CT ---
EXAMINATION TYPE: CT abdomen pelvis w con DATE OF EXAM: 06/07/2023 COMPARISON: None HISTORY: umbilical pain, recent CT DLP: 915.1 mGycm Automated exposure control for dose reduction was used. TECHNIQUE: Helical acquisition of images was performed from the lung bases through the pelvis. CONTRAST: Performed without Oral Contrast and with IV Contrast, patient injected with 100 ml mL of Isovue 300. FINDINGS: The lungs are clear. There is surgical absence of the gallbladder. There is no biliary ductal dilatation. There is no organomegaly of the liver, pancreas, spleen or adrenal glands. There are no renal calcifications or hydronephrosis. The caliber of the abdominal aorta is normal and there is no retroperitoneal adenopathy or hemorrhage . There is a midline periumbilical hernia containing a few small bowel loops of bowel. The bowel wall is mildly thickened and there is hazy density in the adjacent fat suggesting mild edematous change. There is no bowel obstruction. There is no free intraperitoneal air or fluid. There is no pelvic mass, free fluid, abscess or adenopathy. The osseous structures and soft tissues are unremarkable. IMPRESSION: Umbilical midline hernia containing loops of small bowel with possible early changes of strangulation . There is no bowel obstruction.
[2023-06-07 17:59] VITALS: BP 121/81; PULSE 71; RESP 18
[2023-06-07 18:04] LABS: Glucose 86 mg/dL (74-99)
--- NOTE | 2023-06-07 18:13 | ED ---
General Adult HPI - General Chief complaint: Abdominal Pain Stated complaint: buldge in abd-post op comp Time Seen by Provider: 06/07/23 15:20 Source: patient Mode of arrival: ambulatory Limitations: no limitations - History of Present Illness Initial comments: Patient is a 22-year-old female presents emergency Department complaining of abdominal pain. Has a history of a known hernia which is causing her pain. States it has been ongoing since approximately 1 PM this afternoon. Had a normal bowel movement this morning. Has been passing gas despite the pain. Has a history of sections. Denies any nausea or vomiting. Denies any urinary complaints. Presents for the abdominal pain. Presents for further evaluation at this time. Describes it as sharp. Has a history of umbilical hernia and states that this is the area that seems to be hurting. Denies any skin changes. - Related Data Home Medications Medication Instructions Recorded Confirmed Jkn-Rtdq-Errsc Acid 1 cap PO HS 08/27/22 06/07/23 [-U Capsule (formulary)] Lurasidone [Latuda] 40 mg PO HS 06/07/23 06/07/23 Norethindrone [Jinny] 0.35 mg PO HS 06/07/23 06/07/23 Sertraline [Zoloft] 50 mg PO HS 06/07/23 06/07/23 Allergies Allergy/AdvReac Type Severity Reaction Status Date / Time shellfish derived [Shellfish] Allergy Rash/Hives Verified 04/23/23 05:56 Review of Systems ROS Statement: Those systems with pertinent positive or pertinent negative responses have been documented in the HPI. Review of Systems: CONST: Denies fever EYES: Denies blurry vision ENT: Denies nasal congestion C/V: Denies Chest pain RESP: Denies shortness of breath GI: Endorses abdominal pain : Denies dysuria SKIN: Denies rash. MSK: Denies joint pain. NEURO: Denies headache ROS Other: All systems not noted in ROS Statement are negative. Past Medical History Past Medical History: No Reported History, Neurologic Disorder Additional Past Medical History / Comment(s): PCOS, HX epilepsy, no seizures in over 1 year History of Any Multi-Drug Resistant Organisms: None Reported Past Surgical History: Section, Cholecystectomy Past Anesthesia/Blood Transfusion Reactions: No Reported Reaction Past Psychological History: Anxiety, Schizophrenia Smoking Status: Former smoker Past Alcohol Use History: None Reported Past Drug Use History: None Reported - Past Family History Mother Family Medical History: Thyroid Disorder General Exam - General Exam Comments Initial Comments: General: Appears in mild to moderate distress. HEAD: Normal with no signs of head trauma. EYES: PERRLA, EOMI, conjunctiva normal, no discharge. ENT: Hearing grossly intact, normal oropharynx. RESPIRATORY: Clear breath sounds bilaterally. No wheezes, rales, or rhonchi. C/V: Regular rate and rhythm. S1 and S2 auscultated, peripheral pulses 2+ and intact throughout ABD: Abd is generally soft, nondistended, nontender. Tender to palpation over the source of the midline/umbilical hernia. No skin changes. EXT: Normal range of motion, no obvious deformity SKIN: No rashes or lesions observed on exposed skin. NEURO: Alert and oriented x 4 Limitations: no limitations Course Vital Signs 06/07/23 06/07/23 15:05 17:43 Temperature 98.7 F 98.7 F Pulse Rate 84 71 Respiratory 20 18 Rate Blood Pressure 111/81 121/81 O2 Sat by Pulse 98 99 Oximetry Medical Decision Making - Medical Decision Making Was pt. sent in by a medical professional or institution (, PA, RUG SCRATCHER, urgent care, hospital, or prison...) When possible be specific @ -No Did you speak to anyone other than the patient for history (EMS, parent, family, police, friend...)? What history was obtained from this source @ -No Did you review nursing and triage notes (agree or disagree)? Why? @ -I reviewed and agree with nursing and triage notes Were old charts reviewed (outside hosp., previous admission, EMS record, old EKG, old radiological studies, urgent care reports/EKG's, prison records)? Report findings @ -Old charts reviewed Differential Diagnosis (chest pain, altered mental status, abdominal pain women, abdominal pain men, vaginal bleeding, weakness, fever, dyspnea, syncope, headache, dizziness, GI bleed, back pain, seizure, CVA, palpatations, mental health, musculoskeletal)? @ -Differential Abdominal Pain Women: Appendicitis, Cholecystitis, diverticulosis, ischemic bowel, pancreatitis, hepatitis, UTI, gastroenteritis, AAA, incarcerated hernia, bowel obstruction, constipation, inflammatory bowel, hepatitis, peptic ulcer disease, splenic infarction, perforated viscus, vulvitis, ovarian torsion, PID, kidney stone, placenta abruption, this is not meant to be an all-inclusive list EKG interpreted by me (3pts min.). @ -None done X-rays interpreted by me (1pt min.). @ -None done CT interpreted by me (1pt min.). @ -CT reveals a midline periumbilical hernia with a few small bowel loops but no evidence of obstruction. Radiology does know possible haziness which could represent early changes for strangulation U/S interpreted by me (1pt. min.). @ -None done What testing was considered but not performed or refused? (CT, X-rays, U/S, labs)? Why? @ -None What meds were considered but not given or refused? Why? @ -None Did you discuss the management of the patient with other professionals (professionals i.e. , PA, RUG SCRATCHER, lab, RT, psych nurse, director social welfare, polyethylene bag machine operator, teacher, police officer crime prevention, counter caser)? Give summary @ -No Was smoking cessation discussed for >3mins.? @ -No Was critical care preformed (if so, how long)? @ -No Were there social determinants of health that impacted care today? How? (Homelessness, low income, unemployed, alcoholism, drug addiction, transportation, low edu. Level, literacy, decrease access to med. care, [facility], rehab)? @ -No Was there de-escalation of care discussed even if they declined (Discuss DNR or withdrawal of care, Hospice)? DNR status @ -No What co-morbidities impacted this encounter? (DM, HTN, Smoking, COPD, CAD, C ancer, CVA, ARF, Chemo, Hep., AIDS, mental health diagnosis, sleep apnea, morbid obesity)? @ -None Was patient admitted / discharged? Hospital course, mention meds given and route, prescriptions, significant lab abnormalities, going to OR and other pertinent info. @ -Based on patient's presentation and physical exam, presents with a symptom atic chronic hernia. Still passing gas. We will obtain CT imaging, as well as abdominal laboratory studies. She will be administered IV analgesia medications morphine as well as IV fluids. I did discuss with the patient that and she is breast-feeding she should pump and dump her breast milk for the next 24 hours or so to ensure the morphine washes out as it can affect and Urszula breastmilk. S he discussed understanding. Patient's abdominal labs returned within acceptable limits including a lactic acid that is within normal limits. CT was performed and then I attempted reduction of the patient's hernia which was successful. CT imaging did return and showed small bowel loops present in the hernia as well as possible early signs of strangulation however there was successful reduction, lactic acid is within acceptable limits, patient's pain is completely resolved. I did discuss the findings with the patient. Recommended strict return precautions if this occurs again and she should get evaluated once again. She expressed understanding. She'll be given follow-up information for a surgeon. Patient was in agreement this plan. I instructed the patient to follow up with their PCP in the next 1-3 days. I provided contact information for follow up with Dr. Manzo. The current on-call surgeon is [facility] and does not receive referrals, therefore referral placed for Dr. Manzo. I explained that the patient should return to the emergency department if they experience any worsening symptoms. Strict return precautions were discussed with the patient. The patient expressed understanding of these instructions. I answered all questions that the patient had. The patient was discharged home in good condition with their prescriptions and follow up information. Undiagnosed new problem with uncertain prognosis? @ -No Drug Therapy requiring intensive monitoring for toxicity (Heparin, Nitro, Insulin, Cardizem)? @ -No Were any procedures done? @ -Periumbilical hernia reduction Diagnosis/symptom? @ -Periumbilical hernia status post successful reduction Acute, or Chronic, or Acute on Chronic? @ -Acute Uncomplicated (without systemic symptoms) or Complicated (systemic symptoms)? @ -Complicated Side effects of treatment? @ -No Exacerbation, Progression, or Severe Exacerbation? @ -No Poses a threat to life or bodily function? How? (Chest pain, [place], [place], pneumonia, PE, COPD, DKA, ARF, appy, cholecystitis, CVA, Diverticulitis, Homicidal, Suicidal, threat to staff... and all critical care pts) @ -Yes, if not properly treated. - Lab Data Result diagrams: 06/07/23 15:33 06/07/23 15:33 Lab Results 06/07/23 06/07/23 06/07/23 Range/Units 15:33 15:33 15:33 WBC 8.0 (3.8-10.6) k/uL RBC 4.21 (3.80-5.40) m/uL Hgb 13.1 (11.4-16.0) gm/dL Hct 38.3 (34.0-46.0) % MCV 91.0 (80.0-100.0) fL MCH 31.0 (25.0-35.0) pg MCHC 34.1 (31.0-37.0) g/dL RDW 12.7 (11.5-15.5) % Plt Count 279 (150-450) k/uL MPV 8.0 Neutrophils % 63 % Lymphocytes % 29 % Monocytes % 6 % Eosinophils % 1 % Basophils % 0 % Neutrophils # 5.0 (1.3-7.7) k/uL Lymphocytes # 2.3 (1.0-4.8) k/uL Monocytes # 0.5 (0-1.0) k/uL Eosinophils # 0.1 (0-0.7) k/uL Basophils # 0.0 (0-0.2) k/uL PT 9.9 L (10.0-12.5) sec INR 0.9 (<1.2) APTT 24.2 (22.0-30.0) sec Sodium 140 (137-145) mmol/L Potassium 3.7 (3.5-5.1) mmol/L Chloride 107 (98-107) mmol/L Carbon Dioxide 19 L (22-30) mmol/L Anion Gap 14 mmol/L BUN 11 (7-17) mg/dL Creatinine 0.65 (0.52-1.04) mg/dL Est GFR (CKD-EPI)AfAm >90 (>60 ml/min/1.73 sqM) Est GFR (CKD-EPI)NonAf >90 (>60 ml/min/1.73 sqM) Glucose 86 (74-99) mg/dL Plasma Lactic Acid Elia (0.7-2.0) mmol/L Calcium 9.7 (8.4-10.2) mg/dL Total Bilirubin 0.4 (0.2-1.3) mg/dL AST 64 H (14-36) U/L ALT 104 H (4-34) U/L Alkaline Phosphatase 94 (38-126) U/L Total Protein 6.9 (6.3-8.2) g/dL Albumin 4.2 (3.5-5.0) g/dL Amylase 78 (30-110) U/L Lipase 308 H (23-300) U/L 06/07/23 Range/Units 15:33 WBC (3.8-10.6) k/uL RBC (3.80-5.40) m/uL Hgb (11.4-16.0) gm/dL Hct (34.0-46.0) % MCV (80.0-100.0) fL MCH (25.0-35.0) pg MCHC (31.0-37.0) g/dL RDW (11.5-15.5) % Plt Count (150-450) k/uL MPV Neutrophils % % Lymphocytes % % Monocytes % % Eosinophils % % Basophils % % Neutrophils # (1.3-7.7) k/uL Lymphocytes # (1.0-4.8) k/uL Monocytes # (0-1.0) k/uL Eosinophils # (0-0.7) k/uL Basophils # (0-0.2) k/uL PT (10.0-12.5) sec INR (<1.2) APTT (22.0-30.0) sec Sodium (137-145) mmol/L Potassium (3.5-5.1) mmol/L Chloride (98-107) mmol/L Carbon Dioxide (22-30) mmol/L Anion Gap mmol/L BUN (7-17) mg/dL Creatinine (0.52-1.04) mg/dL Est GFR (CKD-EPI)AfAm (>60 ml/min/1.73 sqM) Est GFR (CKD-EPI)NonAf (>60 ml/min/1.73 sqM) Glucose (74-99) mg/dL Plasma Lactic Acid Elia 1.5 (0.7-2.0) mmol/L Calcium (8.4-10.2) mg/dL Total Bilirubin (0.2-1.3) mg/dL AST (14-36) U/L ALT (4-34) U/L Alkaline Phosphatase (38-126) U/L Total Protein (6.3-8.2) g/dL Albumin (3.5-5.0) g/dL Amylase (30-110) U/L Lipase (23-300) U/L Disposition Clinical Impression: Periumbilical hernia Disposition: HOME SELF-CARE Condition: Good Is patient prescribed a controlled substance at d/c from ED?: No Referrals: Nacho Doherty DO [Primary Care Provider] - 1-2 days Kurt Manzo MD [Medical Doctor] - 1-2 days Time of Disposition: 17:59
== END 2023-06-07 19:21 | disposition home or self-care (01) ==
LOC: EC 14:58
DX: K42.9 Umbilical hernia without obstruction or gangrene (principal); Z87.891 Personal history of nicotine dependence; Z90.49 Acquired absence of other specified parts of digestive tract; Z86.59 Personal history of other mental and behavioral disorders
CPT/HCPCS: 80053; 82150; 83605; 83690; 85025; 85610; 85730; 74177; 99284; 96374; 96375; 96376; 96361 ×2; J2270; J2405; Q9967; 36415

== ENCOUNTER 2023-09-15 05:35 | Day surgery (SDC) | payer OTHER ==
[2023-09-11 12:19] VITALS: BMI 34.0
[2023-09-15] MEDS ORDERED: LIDOCAINE 1% (10MG/ML) FOR IV START INTRADERMA PRN (06:04)
[2023-09-15] MEDS ORDERED: METOCLOPRAMIDE 5 MG/ML 2 ML VIAL IVP PRN (06:04)
[2023-09-15] MEDS ORDERED: HYDROmorphone 0.5 MG/0.5 ML SYRINGE IVP PRN (06:04)
[2023-09-15] MEDS: LACTATED RINGERS 1,000 ML IV SCH (06:36)
[2023-09-15] MEDS: ACETAMINOPHEN TAB 500 MG TAB PO PRN (06:45)
[2023-09-15] MEDS: ONDANSETRON 4 MG/2 ML VIAL IVP ONE (06:45)
[2023-09-15] MEDS: DEXAMETHASONE SOD PHOSPHATE 4 MG/ML 1 ML VIAL IV ONE (06:46)
[2023-09-15] MEDS: HEPARIN SODIUM,PORCINE 5,000 UNIT/ML 1 ML VIAL SQ PRN (06:47)
[2023-09-15] MEDS ORDERED: PROPOFOL 10 MG/ML 20 ML VIAL IV ONE (07:23)
[2023-09-15] MEDS ORDERED: SUCCINYLCHOLINE CHLORIDE 200 MG/10 ML VIAL IV ONE (07:23)
[2023-09-15] MEDS ORDERED: LIDOCAINE 1% INJ 10MG/ML (20 ML MDV) ONE (07:23)
[2023-09-15] MEDS ORDERED: fentaNYL (PF) 50 MCG/ML 2 ML AMP ONE (07:23)
[2023-09-15] MEDS ORDERED: ROCURONIUM 10 MG/ML (5 ML VIAL) IV ONE (07:23)
[2023-09-15] MEDS ORDERED: GLYCOPYRROLATE 0.2 MG/ML 2 ML VIAL ONE (07:23)
[2023-09-15] MEDS ORDERED: NEOSTIGMINE 1 MG/ML 10 ML VIAL ONE (07:23)
[2023-09-15] MEDS ORDERED: MIDAZOLAM 2 MG/2 ML VIAL ONE (07:23)
[2023-09-15] MEDS ORDERED: KETOROLAC 15 MG/ML 1 ML VIAL ONE (07:23)
[2023-09-15] MEDS: BUPIVACAINE (PF) 0.25% 30 ML VIAL SQ ONE ×3 (07:28→08:30)
[2023-09-15] MEDS: IV FLUID CONTINUATION 1,000 ML IV ONE (08:46)
[2023-09-15] MEDS ORDERED: ACETAMINOPHEN TAB 325 MG TAB PO SCH (09:00)
--- NOTE | 2023-09-15 09:00 | P.OP ---
Date of Procedure: 09/15/23 Procedure(s) Performed: PREOPERATIVE DIAGNOSIS: Incarcerated ventral hernia POSTOPERATIVE DIAGNOSIS: Incarcerated ventral hernia, small reducible umbilical hernia PROCEDURE: Open repair incarcerated ventral hernia and small umbilical hernia with mesh SURGEON: Dr. Manzo ANESTHESIA: General OPERATIVE PROCEDURE DETAILS: Patient placed on the operating table in the supine position. Abdomen was prepped and draped in usual sterile fashion. A vertical incision was then made superior to the umbilicus. Dissection through the subcutaneous tissues took place using electrocautery. The patient had a single ventral hernia defect measuring 1.5 x 1.5 cm. The hernia sac was fairly large. This was able to be reduced. The preperitoneal space was dissected. The fascia was circumferentially dissected including elevating the umbilicus off of the fascia. In doing so the patient had a small 3 to 4 mm defect at the base of the umbilicus. Once we had adequate space in the preperitoneal space a 6.4 cm mesh was placed and sutured in place using transfascial 0 Ethibond sutures. The main ventral hernia defect was closed horizontally using interrupted horizontal mattress 0 Ethibond sutures. The folding edge was sutured down using 0 Ethibond sutures as well. The small fascial defect at the base of the umbilicus was closed using a single [id number] 0 Ethibond suture. The umbilical dermis was sutured back down to the fascia using a [id number] 2-0 Vicryl stitch. The subcutaneous tissues were closed using 3-0 Vicryl sutures. The skin was closed using a running 4-0 Monocryl suture. Skin glue and sterile dressings were applied. HERNIA CHARACTERISTICS: Length: 1.5 cm Width: 1.5 cm Type: Incarcerated ventral TYPE OF MESH USED: 6.4 cm ventral X LOCATION OF MESH: [place] FIXATION: 0 Ethibond PREOPERATIVE DISCUSSION ON SMOKING CESSASTION: Yes PREOPERATIVE DISCUSSION ON MORBID OBESITY: Yes PREOPERATIVE DISCUSSION ON APPROPRIATE USE OF NARCOTIC USE: Yes PREOPERATIVE EDUCATION: Multi Modal, Smoking Cessation and Weight Loss with BMI over 35. DISPOSITION: Stable to recovery room
[2023-09-15] MEDS: HYDROmorphone 0.5 MG/0.5 ML SYRINGE IVP ONE (09:17)
[2023-09-15 09:26] VITALS: TEMP 97.8
[2023-09-15] MEDS ORDERED: HYDROcodone/APAP 5-325MG 1 EACH TAB ONE (09:55)
[2023-09-15] MEDS: HYDROcodone/APAP 5-325MG 1 EACH TAB PO ONE (09:57)
[2023-09-15 10:00] VITALS: RESP 18
[2023-09-15 10:35] VITALS: BP 124/81; PULSE 77
[2023-09-15] MEDS ORDERED: IBUPROFEN 600 MG TAB PO SCH (12:00)
== END 2023-09-15 10:31 | disposition home or self-care (01) ==
LOC: OR 05:35
PROVIDERS: ATTEND Surgery
DX: K43.6 Other and unspecified ventral hernia with obstruction, without gangrene (principal); F32.A Depression, unspecified; Z79.899 Other long term (current) drug therapy; Z90.49 Acquired absence of other specified parts of digestive tract
CPT/HCPCS: 81025; 88302; 49592; C1781; J2250; J0330; J1644; J1100; J2710; J0690; J2405; J2001; J3010; J1885; J2704; J1170; J0665